=== PATIENT | male | born 1960 | race Caucasian/White ===

== ENCOUNTER 2019-05-22 08:55 | Emergency (ER) | payer OTHER, SELFPAY ==
[2019-05-22 09:02] VITALS: BP 127/76; PULSE 83; RESP 16; TEMP 36.8; O2SAT 98
--- NOTE | 2019-05-22 09:07 | ED.GENADULT ---
HPI - General Adult General Chief complaint: Upper Respiratory Infection Stated complaint: chest discomfort Source: patient and RN notes reviewed Mode of arrival: ambulatory Limitations: no limitations History of Present Illness HPI narrative: This is a 58 years old male presents to the office for an evaluation of chest discomfort. Related Data Allergies Allergy/AdvReac Type Severity Reaction Status Date / Time acetaminophen Allergy Severe Anaphylactic Verified 06/24/18 14:42 Shock hydromorphone Allergy Severe Anaphylactic Verified 06/24/18 14:42 Shock oxycodone Allergy Severe Anaphylactic Verified 06/24/18 14:42 Shock butorphanol AdvReac Severe Anaphylactic Verified 06/24/18 14:42 Shock Review of Systems Review of Systems: Narrative: CONSTITUTIONAL: Denies fever, chills, sweats. EYES: Denies visual changes, redness, discharge. ENT: Denies rhinorrhea, congestion, sore throat, otalgia. CARDIOVASCULAR: Denies chest pain, palpitations, edema. RESPIRATORY: Denies dyspnea, wheezing, cough GASTROINTESTINAL: Denies abdominal pain, nausea, vomiting, diarrhea. GENITOURINARY: Denies urinary symptoms or discharge SKIN: Denies rash MUSCULOSKELETAL: Denies acute back pain, joint pain, or myalgia. NEUROLOGIC: Denies numbness, or focal weakness. [facility] Past Medical History Medical History Gout Migraines Surgical History Surgical History Hx of cholecystectomy Comments At time of signature, I agree with nursing past medical, surgical, social and family history. There is no relevant family history pertinent to the presenting complaint. Exam Narrative: Exam Narrative: GENERAL: This is a well-nourished, well-developed patient, in no apparent distress. EYES: PERRL. Sclera clear/white. Vision is grossly intact. EARS: External ears normal, auditory canals clear and without drainage, TMs normal without perforation. Hearing grossly intact. NOSE: External nose normal with no obvious nasal discharge, nares without redness, no rhinorrhea. THROAT: Mucous membranes moist, posterior pharynx clear. NECK: Neck supple, non-tender without lymphadenopathy, masses or thyromegaly. CARDIOVASCULAR: Regular rate and rhythm without murmurs, gallops, or rubs. RESPIRATORY: Clear to auscultation. Breath sounds equal bilaterally. No wheezes, rales, or rhonchi. GASTROINTESTINAL: Abdomen soft, non-tender, nondistended. Bowel sounds are active. No hepato-splenomegaly, or palpable masses. No guarding. SKIN: warm, intact with no suspicious lesions or rash, good texture and turgor. NEURO: awake, alert, and oriented to person, place and time. There were no obvious focal neurologic abnormalities. Steady gait EXTREMITIES: Normal range of motion. No edema. No calf tenderness. Negative Homans sign bilaterally. BACK: Nontender without deformity or crepitance. No flank tenderness. Maya Coma Scale Eye Opening: Spontaneous 4 Maya Coma Scale Motor: Obeys Commands 6 Maya Coma Scale Verbal: Oriented 5 Course Vital Signs Vital signs: Vital Signs Temperature 98.2 F 05/22/19 09:02 Pulse Rate 83 05/22/19 09:02 Respiratory Rate 16 05/22/19 09:02 Blood Pressure 127/76 05/22/19 09:02 Pulse Oximetry 98 05/22/19 09:02 Temperature 98.2 F 05/22/19 09:02 Pulse Rate 83 05/22/19 09:02 Respiratory Rate 16 05/22/19 09:02 Blood Pressure 127/76 05/22/19 09:02 Pulse Oximetry 98 05/22/19 09:02 Medical Decision Making MDM Narrative Medical decision making narrative: Discharge instructions reviewed with patient, as well as provided in writing per nursing staff. The instructions also include specific and strict return/GO TO THE ER as well as f/u information. All questions have been answered, and the patient deny any further questions with discharge and discharge plan. Differential Diagnosis Differential
== END 2019-05-22 09:10 | disposition home or self-care (01) ==
PROVIDERS: Emergency Provider Nurse Practitioner
DX: R07.9 Chest pain, unspecified (principal)
CPT/HCPCS: 99199

== ENCOUNTER 2019-05-22 09:42 | Emergency (ER) | payer OTHER, SELFPAY ==
--- NOTE | ~2019-05-22 | XR_ITS ---
XR chest 2V DATE: 05/22/2019 10:42 INDICATION: Right upper posterior chest pain, anterior chest pain. Shortness of breath. TECHNIQUE: PA and lateral views COMPARISON: 06/24/2018 PA and lateral chest FINDINGS: Normal heart size. No hilar or mediastinal enlargement. There is mild bilateral apical capp ing. No pulmonary infiltrate or consolidation, pleural effusion or pulmonary vascular congestion or p neumothorax. Degenerative spurring of the thoracic spine. IMPRESSION: No active cardiopulmonary disease Reviewed, dictated and finalized at location [facility]
[2019-05-22 10:00] VITALS: BP 131/70; PULSE 78; RESP 20; TEMP 36.8; O2SAT 100
--- NOTE | 2019-05-22 10:04 | ECG_ITS ---
Measurements Intervals [place] Rate: 78 P: 48 ND: 142 QRS: 52 QRSD: 102 T: 46 QT: 372 QTc: 424 Interpretive Statements SINUS RHYTHM POSSIBLE LEFT ATRIAL ENLARGEMENT INCOMPLETE RIGHT BUNDLE BRANCH BLOCK BORDERLINE ECG Electronically Signed On 05-22-2019 12:04:34 [facility] [employer] by Edi Sharma D.O.
--- NOTE | 2019-05-22 10:11 | ED.CHESTPAIN ---
HPI - Chest Pain General Chief Complaint: Chest Pain Stated Complaint: Lump in throat, CP Time Seen by Provider: 05/22/19 10:01 Source: patient Mode of arrival: ambulatory Limitations: no limitations History of Present Illness HPI narrative: Pt is a 58 y/o male who presents to the ED with c/o diffuse mid CP that started last night. Pt states he feels a lump in his throat. He notes that he started coughing 2 days ago but he gets pain to his chest when he coughs. Pt denies his CP radiating to his jaw, shoulder, or back. He states that he has been belching and feels like he has indigestion but denies a burning sensation. He has not been lifting heavy objects or over exerting himself, but his chest feels sore when he pushes on it. His CP is not aggravated with deep breaths. Pt reports nausea, and sinus congestion, but denies ABD pain, vomiting, SOB. BLE swelling or pain. He states that his sister had a MO at age 56 but he is more active than she is. Pt gets a yearly physical at his PCP's office. He has a H/o gout and had a flare up 2 weeks ago and was started on colchicine. MD complaint: chest pain Onset (ago): hour(s) (last night) Prior episodes: No Onset: during rest Pain location: substernal Pain radiation: none Quality: other (sore) Relieving factors: nothing Associated symptoms: nausea and other ( lump in throat , belching, ) Related Data Home Medications Medication Instructions Recorded Confirmed allopurinol 100 mg PO DAILY 05/22/19 Allergies Allergy/AdvReac Type Severity Reaction Status Date / Time hydromorphone Allergy Severe Anaphylactic Verified 05/22/19 10:04 Shock oxycodone Allergy Severe Anaphylactic Verified 05/22/19 10:04 Shock hydrocodone Allergy Dyspnea / Verified 05/22/19 10:04 SOB butorphanol AdvReac Severe Anaphylactic Verified 05/22/19 10:04 Shock Review of Systems Review of Systems: Narrative: ENT: Reports sinus congestion and lump in throat CARDIOVASCULAR: Reports mid CP. Denies BLE edema. RESPIRATORY: Denies dyspnea. Reports cough GASTROINTESTINAL: Denies abdominal pain, vomiting, or diarrhea. Reports nausea and belching MUSCULOSKELETAL: Denies BLE pain All systems reviewed & are unremarkable except as noted in HPI and below PMFSH Past Medical History Medical History Gout Migraines Surgical History Surgical History Hx of cholecystectomy Social History Social History (Updated 05/22/19 @ 10:50 by Laureen Fisher) Smoking status: Current every day smoker Exam Narrative: Exam Narrative: GENERAL: Well-appearing, well-nourished, and in no acute distress. HEAD: Normocephalic, atraumatic. EYES: PERRLA and EOMI. ENT: Nares clear, no rhinorrhea or epistaxis. Mucous membranes moist. NECK: Supple. CHEST: Clear to auscultation. No respiratory distress. Chest wall tenderness over mid sternum. HEART: Regular rate and rhythm. No murmur heard. Normal peripheral pulses. ABDOMEN: Soft, mild epigastric tenderness, nondistended, normal active bowel sounds. EXTREMITIES: Normal range of motion. No edema or erythema to BLE. SKIN: Warm, dry, no rash to BLE. NEURO: No focal deficits. Alert and oriented X3. Course Vital Signs Vital signs: Vital Signs Temperature 36.8 C 05/22/19 10:00 Pulse Rate 78 05/22/19 10:00 Respiratory Rate 20 05/22/19 10:00 Blood Pressure 131/70 05/22/19 10:00 Pulse Oximetry 100 05/22/19 10:00 Temperature 36.8 C 05/22/19 11:22 Pulse Rate 75 05/22/19 12:45 Respiratory Rate 15 05/22/19 12:45 Blood Pressure 100/89 05/22/19 12:45 Pulse Oximetry 97 05/22/19 12:45 MDM - Chest Pain MDM Narrative Medical decision making narrative: Patient's EKG and labs are without significant high risk changes. Most the patient's symptoms do seem gastric in nature given he has had belching, burping, burning type sensation most consistent wit
[2019-05-22 10:17] LABS: Basophils Percent Auto 0.5 % (0.2-1.2); Eosinophils Absolute Auto 0.2 K/mm3 (0-0.3); Eosinophils Percent Auto 2.7 % (0-4.4); Hematocrit 39.5 % (42.0-52.0); Hemoglobin 13.8 g/dL (14.0-18.0); Immature Granulocyte Absolute 0.09 K/mm3 (0.00-0.031); Immature Granulocyte Percent A 1.1 % (0-0.5); Lymphocytes Absolute Auto 2.51 K/mm3 (0.9-3.2); Lymphocytes Percent Auto 31.9 % (18.3-44.2); Mean Corpuscular HGB Conc 34.9 g/dl (32-36); Mean Corpuscular Hemoglobin 32.2 pg (26-34); Mean Corpuscular Volume 92.3 fl (80-100); Monocytes Percent Auto 12.7 % (2.6-8.5); Neutrophils Percent Auto 51.1 % (45.5-73.1); Platelet Count Result 153 k/mm3 (150-375); Red Blood Count 4.28 M/mm3 (4.6-6.20); White Blood Count 7.9 K/mm3 (4.5-10.0)
[2019-05-22 10:26] LABS: INR 0.9; Prothrombin Time 12.3 Seconds (11.1-14.7)
[2019-05-22 10:27] LABS: Partial Thromboplastin Time 26.2 SECONDS (22.3-36.8)
[2019-05-22 10:41] LABS: Blood Urea Nitrogen 14 mg/dL (9-20); Calcium 8.9 mg/dL (8.4-10.2); Carbon Dioxide 22 mmol/L (22-30); Chloride 98 mmol/L (98-107); Estimated CRCL calculation 133 ml/min; Estimated Glomerular Filt Rate > 60; Glucose 253 mg/dL (75-110); Potassium 3.7 mmol/L (3.4-5.0); Sodium 132 mmol/L (137-145)
[2019-05-22 10:45] LABS: Troponin I < 0.012 ng/mL (0.000-0.034)
[2019-05-22] MEDS: SODIUM CHLORIDE 0.9% IV 1,000 ML 999 ML IV CONT (10:48)
[2019-05-22] MEDS: ONDANSETRON INJ 4 MG/2 ML VIAL IV PUSH (10:48)
[2019-05-22] MEDS: FAMOTIDINE 20 MG/2 ML VIAL IV PUSH (10:49)
[2019-05-22] MEDS: MAG HYDROX/AL HYDROX/SIMETH 30 ML UDC PO (10:49)
[2019-05-22] MEDS: ASPIRIN 81 MG CHEWABLE TABLET 324 MG PO (10:49)
[2019-05-22] MEDS: KETOROLAC 15 MG/ML VIAL (*BKC) IV PUSH (10:50)
[2019-05-22 11:16] VITALS: PULSE 78
[2019-05-22 11:20] VITALS: BP 129/100; PULSE 76; RESP 16; O2SAT 96
[2019-05-22 11:22] VITALS: TEMP 36.8
[2019-05-22 11:36] LABS: Alanine Aminotransferase 39 U/L (4-50); Albumin Level 3.9 g/dL (3.5-5.1); Alkaline Phosphatase 67 U/L (38-126); Aspartate Amino Transferase 49 U/L (17-59); Bilirubin,Total 0.6 mg/dL (0.2-1.3); Blood Urea Nitrogen 14 mg/dL (9-20); Calcium 8.8 mg/dL (8.4-10.2); Carbon Dioxide 21 mmol/L (22-30); Chloride 99 mmol/L (98-107); Estimated CRCL calculation 133 ml/min; Estimated Glomerular Filt Rate > 60; Glucose 252 mg/dL (75-110); Lipase 65 U/L (23-300); Potassium 3.6 mmol/L (3.4-5.0); Sodium 131 mmol/L (137-145)
[2019-05-22 12:45] VITALS: BP 100/89; PULSE 75; RESP 15; O2SAT 97
[2019-05-22 13:35] LABS: Troponin I < 0.012 ng/mL (0.000-0.034)
[2019-05-22 13:49] VITALS: BP 125/85; PULSE 76; RESP 16; O2SAT 97
== END 2019-05-22 13:54 | disposition home or self-care (01) ==
PROVIDERS: Emergency Provider Emergency Medicine; PCP Family Medicine
DX: K29.00 Acute gastritis without bleeding (principal); F17.210 Nicotine dependence, cigarettes, uncomplicated
CPT/HCPCS: 36415; 71046; 80048; 80053; 83690; 84484; 85025; 85610; 85730; 93005; 96361; 96374; 96375; 99284; A9270; J1885; J2405; J7030